=== PATIENT | female | born 1945 | race Caucasian/White ===

== ENCOUNTER 2017-10-16 14:09 | Emergency (ER) | payer OTHER ==
[2017-10-16 14:33] VITALS: TEMP 97.9; BMI 25.7
[2017-10-16] MEDS ORDERED: SODIUM CHLORIDE 1,000 ML IV STA (16:07)
[2017-10-16] MEDS ORDERED: ASPIRIN 81 MG CHEWABLE TABLETS PO ONE (16:07)
--- NOTE | 2017-10-16 16:09 | PDOC ---
History of Present Illness - General Chief Complaint: Pain Stated Complaint: CHEST PAIN Time Seen by Provider: 10/16/17 15:14 History Source: Patient Exam Limitations: No Limitations - History of Present Illness Initial Comments: This is a 72 YOF with h/o dementia and HTN who p/w 2 weeks of daily fever to 101 with onset of dull left upper abdominal pain/lower chest pain radiating straight to her back over the past three days. She additionally has had recent increased anxiety/nervousness, fatigue, generalized weakness, malaise, night sweats, and about a 5 lb weight loss in the past week. She just recently adopted a feral cat who bit her on the chin 3 weeks ago, and she believes that she has caught toxoplasmosis based on her research online. She saw her PCP earlier this week, who did blood tests and a UA. The patient states that they were not able to find any obvious sources of infection, but she was given levofloxacin for her symptoms. She has been taking this antibiotic since that then without relief of her symptoms. Past History - Past Medical History Allergies/Adverse Reactions: Allergies Allergy/AdvReac Type Severity Reaction Status Date / Time No Known Allergies Allergy Verified 10/16/17 14:32 Home Medications: Ambulatory Orders Doxycycline Hyclate 100 mg PO BID #20 tablet 10/16/17 Losartan Potassium 50 mg PO DAILY 10/16/17 COPD: No - Suicide/Smoking/Psychosocial Hx Smoking History: Never smoked Review of Systems - Review of Systems Able to Perform ROS?: Yes Constitutional: Yes: Chills, Fever, Malaise, Weakness, Unintentional Wgt. Loss HEENTM: No: Nose Congestion, Throat Pain Respiratory: No: Cough, Shortness of Breath Cardiac (ROS): Yes: Chest Pain. No: Edema, Palpitations ABD/GI: No: Constipated, Diarrhea, Nausea, Vomiting : No: Burning, Dysuria Musculoskeletal: Yes: Back Pain. No: Neck Pain Integumentary: No: Bruising, Rash Neurological: No: Headache, Numbness, Tingling, Weakness, Dizziness Psychiatric: Yes: Anxiety, Stressors Endocrine: No: Unexplained Weight Gain, Unexplained Weight Loss *Physical Exam - Vital Signs Last Vital Signs Temp Pulse Resp BP Pulse Ox 97.9 F 91 H 18 149/84 98 10/16/17 14:27 10/16/17 14:27 10/16/17 14:27 10/16/17 14:27 10/16/17 14:27 - Physical Exam General Appearance: Yes: Nourished, Appropriately Dressed, Moderate Distress, Other (very anxious-appearing and occasionally tearful older adult female who appears well-nourished) HEENT: positive: EOMI, Normal Voice, Hearing Grossly Normal. negative: Scleral Icterus (R), Scleral Icterus (L), Nasal Congestion Neck: positive: Trachea midline, Supple. negative: Tender, Rigid Respiratory/Chest: positive: Lungs Clear, Normal Breath Sounds. negative: Respiratory Distress, Crackles, Rhonchi, Stridor, Wheezing Cardiovascular: positive: Regular Rhythm, Regular Rate. negative: Murmur Gastrointestinal/Abdominal: positive: Normal Bowel Sounds, Soft. negative: Tender, Organomegaly, Pulsatile Mass, Guarding Musculoskeletal: positive: Normal Inspection. negative: Decreased Range of Motion, Vertebral Tenderness Extremity: positive: Normal Capillary Refill, Normal Inspection, Normal Range of Motion. negative: Tender, Cyanosis Integumentary: positive: Normal Color, Dry, Warm. 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 On exam VS wnl, oral temp afebrile, heart/lung exams normal, but patient very anxious and tearful. DDX IBNLT thyroid disorder, myocarditis, pericarditis, arrhythmia, viral illness , ACS, malignancy (leukemia/lymphoma?), toxicity, etc. Ordered is TSH CBCD CMP Mg Phos Cardiac panel UA Cx EKG CXR. *DC/Admit/Observation/Transfer Diagnosis at time of Disposition: Generalized weakness Fever Qualifiers: Fever type: unspecified Qualified Code(s): R50.9 - Fever, unspecified Fatigue Qualifiers: Fatigue type: unspecified Qualified Code(s): R53.83 - Other fatigue - Discharge Dispostion Disposition: HOME Condition at time of disposition: Stable Admit: No - Prescriptions Prescriptions: Doxycycline Hyclate 100 mg PO BID #20 tablet - Referrals Referrals: ON STAFF,NOT [Primary Care Provider] - Bryce Machado MD [Staff Physician] - Aydin Castillo [Non Staff, Medical] - - Patient Instructions Additional Instructions: You were seen in the ER for fever, generalized weakness, fatigue, and chest discomfort. We did blood and urine tests, as well as an EKG and a chest x-ray. Everything was normal. We are sending a prescription for an antibiotic called doxycycline to your pharmacy. Please pick this up and take it. Follow up with your regular doctor in 1-2 days. Please also make appointments with the hematology/oncology doctor, and with the infectious disease doctor if your symptoms continue. Please return to the ER for any new or worsening symptoms. - Post Discharge Activity
[2017-10-16 16:28] LABS: BASO % 0.7 % (0-2.0); EOS % 0.8 % (0-4.5); HEMATOCRIT 39.7 % (32.4-45.2); HEMOGLOBIN 13.5 GM/dL (10.7-15.3); LYMPH % 14.8 % (8-40); MCH 29.9 pg (25.7-33.7); MEAN CELL VOLUME 87.8 fl (80-96); MEAN PLT VOLUME 7.9 fl (7.5-11.1); MONO % 7.6 % (3.8-10.2); NEUT % 76.1 % (42.8-82.8); PLATELET COUNT 389 K/MM3 (134-434); RBC 4.53 M/mm3 (3.60-5.2); RDW 12.7 % (11.6-15.6)
[2017-10-16] MEDS ORDERED: ASPIRIN 81 MG CHEWABLE TABLETS ONE (16:31)
[2017-10-16 16:47] LABS: INR 1.3 (0.82-1.09); PROTHROMBIN TIME (PATIENT) 14.7 SEC (9.98-11.88)
[2017-10-16 16:53] LABS: ALBUMIN 3.4 g/dl (3.4-5.0); ANION GAP 8 (8-16); BILIRUBIN,TOTAL 0.4 mg/dL (0.2-1.0); BLOOD UREA NITROGEN 10 mg/dL (7-18); CALCIUM 9.2 mg/dL (8.5-10.1); CHLORIDE 100 mmol/L (98-107); CO2 29 mmol/L (21-32); CREATININE 0.9 mg/dL (0.55-1.02); GLUCOSE,RANDOM 110 mg/dL (74-106); MAGNESIUM 2.6 mg/dL (1.8-2.4); POTASSIUM 4.2 mmol/L (3.5-5.1); SGOT/AST 23 U/L (15-37); SGPT/ALT 53 U/L (12-78); SODIUM 137 mmol/L (136-145)
[2017-10-16 16:57] LABS: ALK PHOS 308 U/L (45-117); N-TERMINAL BNP 285.18 pg/ml (5-125)
[2017-10-16 17:02] LABS: LIPASE 234 U/L (73-393)
[2017-10-16 17:51] LABS: URINE APPEARANCE CLEAR; URINE BILIRUBIN NEGATIVE (NEGATIVE); URINE BLOOD NEGATIVE (NEGATIVE); URINE COLOR COLORLESS; URINE GLUCOSE (UA) NEGATIVE (NEGATIVE); URINE KETONE NEGATIVE (NEGATIVE); URINE LEUK ESTERASE NEGATIVE (NEGATIVE); URINE NITRITE NEGATIVE (NEGATIVE); URINE PROTEIN NEGATIVE (NEGATIVE); URINE UROBILINOGEN NEGATIVE mg/dL (0.2-1.0)
[2017-10-16 18:27] VITALS: BP 136/76; PULSE 87
--- NOTE | 2017-10-16 19:10 | PDOC ---
Attending Attestation - Resident Resident Name: Ellen Haider - ED Attending Attestation I have performed the following: I have examined & evaluated the patient, The case was reviewed & discussed with the resident, I agree w/resident's findings & plan, Exceptions are as noted - HPI HPI: 10/16/17 19:01 72 F with h/o dementia, HTN presenting with intermittent fevers x 2 weeks. Pt states that she has been measuring temps of 101 at home on a daily basis. She denies cough, denies N/V/D. Denies cold-like symptoms. States that she feels very nervous, tired, and weak. She also endorses weight loss of 5 lbs over the past week. Pt saw her PCP earlier this week who sent cultures and started her on levaquin. Pt states that this did not help. Pt presents to ER today because she had an episode of LUQ abdominal pain, now resolved. Pt is concerned that she acquired an infection from a feral cat she adopted earlier this month. She states that she was bitten on the chin by the cat but denies any redness, swelling, or pain in the area. - Physicial Exam PE: 10/16/17 19:03 "GENERAL: Awake, alert, and fully oriented, in no acute distress HEAD: No signs of trauma EYES: PERRLA, EOMI, sclera anicteric, conjunctiva clear ENT: Auricles normal inspection, hearing grossly normal, nares patent, oropharynx clear without exudates. Moist mucosa NECK: Nontender, no stepoffs, Normal ROM, supple, no lymphadenopathy, JVD, or masses LUNGS: Breath sounds equal, clear to auscultation bilaterally. No wheezes, and no crackles HEART: Regular rate and rhythm, normal S1 and S2, no murmurs, rubs or gallops ABDOMEN: Soft, nontender, normoactive bowel sounds. No guarding, no rebound. No masses EXTREMITIES: Normal range of motion, no edema. No clubbing or cyanosis. No cords, erythema, or tenderness NEUROLOGICAL: Cranial nerves II through XII intact. 5/5 strength and sensation in all extremities, Normal speech, normal gait SKIN: Warm, Dry, normal turgor, no rashes or lesions noted. " - Medical Decision Making 10/16/17 19:03 72 F with intermittent fevers x 2 weeks. Pt with no focal infectious symptoms, afebrile in ER. - Labs, CXR, and UA are unremarkable - Suspicion for infectious process is low. Possible occult malignancy - Ddx also includes possible Lyme disease given potential exposure, will cover with richard Spoke to pt about importance of f/u with ID and heme/onc and pt expresses understanding. I discussed the physical exam findings, ancillary test results and final diagnoses with the patient. I answered all of the patient's questions. The patient was satisfied with the care received and felt comfortable with the discharge plan and treatment plan. The patient agrees to follow up with the primary care physician within 24-72 hours.
--- NOTE | 2017-10-17 13:03 | EKG ---
Test Reason : Blood Pressure : / mmHG Vent. Rate : 075 BPM Atrial Rate : 075 BPM P-R Int : 144 ms QRS Dur : 082 ms QT Int : 388 ms P-R-T Axes : 060 031 026 degrees QTc Int : 433 ms NORMAL SINUS RHYTHM NORMAL ECG NO PREVIOUS ECGS AVAILABLE Confirmed by NAGI WINKLER MD ([id number]) on 10/17/2017 1:02:36 PM Referred By: Confirmed By:NAGI WINKLER MD
== END 2017-10-16 20:09 | disposition home or self-care (01) ==
LOC: JER 14:09
PROC: 3E0337Z Introduction of Electrolytic and Water Balance Substance into Peripheral Vein, Percutaneous Approach (ICD-10-PCS; principal; 2017-10-16)
DX: R53.1 Weakness (principal)
CPT/HCPCS: 36415; 71046-TC; 80053; 81003; 82550; 83690; 83735; 83880; 84443; 84484; 85025; 85610; 86850; 86900; 86901; 93005; 93010; 96360; 99284-25